=== PATIENT | male | born 2000 | race Caucasian/White ===

== ENCOUNTER 2021-12-26 13:37 | Emergency (ER) | payer OTHER, SELFPAY ==
[2021-12-26 13:48] VITALS: BP 128/70; PULSE 78; RESP 20; TEMP 37.7; O2SAT 100
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
== END 2021-12-26 14:30 | disposition home or self-care (01) ==
PROVIDERS: Emergency Provider Nurse Practitioner Family
DX: S39.012A Strain of muscle, fascia and tendon of lower back, initial encounter (principal); V89.2XXA Person injured in unspecified motor-vehicle accident, traffic, initial encounter
CPT/HCPCS: 99212; G0463